=== PATIENT | female | born 1985 | race Two or more races ===

== ENCOUNTER 2020-10-08 11:42 | Inpatient (IN) | payer OTHER ==
[2020-10-08] MEDS ORDERED: DEXTROSE 5%-LACTATED RINGERS 1,000 ML IV SCH (23:45)
[2020-10-09] MEDS ORDERED: AMPICILLIN - 2 GM in SODIUM CHLORIDE 100 ML IVPB ONE (01:00)
[2020-10-09] MEDS ORDERED: AMPICILLIN SODIUM 2 GM VIAL ONE (01:09)
[2020-10-09 01:19] VITALS: BMI 26.0
[2020-10-09 01:37] LABS: BASO % 0.5 % (0-2.0); EOS % 2.8 % (0-4.5); HEMATOCRIT 33.7 % (32.4-45.2); HEMOGLOBIN 11.2 GM/dL (10.7-15.3); LYMPH % 32.6 % (8-40); MCH 26.7 pg (25.7-33.7); MCHC 33.3 g/dl (32.0-36.0); MEAN CELL VOLUME 80.2 fl (80-96); MEAN PLT VOLUME 9.3 fl (7.5-11.1); MONO % 11.1 % (3.8-10.2); PLATELET COUNT 176 10^3/uL (134-434); RBC 4.21 M/mm3 (3.60-5.2); RDW 14.4 % (11.6-15.6)
[2020-10-09 01:45] LABS: INR 0.93 (0.83-1.09); PROTHROMBIN TIME (PATIENT) 11.5 SEC (9.7-13.0)
[2020-10-09 01:47] LABS: ACTIVATED PTT 26.2 SECONDS (25.2-36.5)
[2020-10-09 02:01] LABS: CALCIUM 8.4 mg/dL (8.5-10.1)
[2020-10-09 02:02] LABS: ALBUMIN 2.6 g/dl (3.4-5.0); BLOOD UREA NITROGEN 11.9 mg/dL (7-18)
[2020-10-09 02:05] LABS: CREATININE 0.6 mg/dL (0.55-1.3)
[2020-10-09 02:06] LABS: BILIRUBIN,TOTAL 0.2 mg/dL (0.2-1); TOT PROT 6.1 g/dl (6.4-8.2)
[2020-10-09 04:04] LABS: HIV INTERPRETATION NEGATIVE (NEGATIVE); SYPHILIS W/ RPR CONF NON-REACTIVE (NONREACTIVE)
[2020-10-09] MEDS ORDERED: AMPICILLIN SODIUM 1 GM VIAL ONE ×2 (04:40→08:56)
[2020-10-09] MEDS ORDERED: PROMETHAZINE HCL 25 MG/1 ML VIAL IVPUSH ONE (04:57)
[2020-10-09] MEDS: AMPICILLIN - 1 GM in SODIUM CHLORIDE 100 ML IVPB SCH ×2 (05:00→09:00)
[2020-10-09] MEDS ORDERED: ELECTROLYTE-148 SOLN 1,000 ML IV SCH (05:00)
[2020-10-09] MEDS ORDERED: BUTORPHANOL TARTRATE 2 MG/ML VIAL ONE (05:05)
[2020-10-09] MEDS: BUTORPHANOL TARTRATE 1 MG/ML VIAL IVPB SCH ×2 (05:20→12:21)
[2020-10-09] MEDS ORDERED: PCA PUMP NR ONE (07:55)
[2020-10-09] MEDS ORDERED: FENTANYL/BUPIVACAINE/NS/PF - PCEA - 50 ML DISP.SYRIN EP ONE (07:55)
[2020-10-09] MEDS ORDERED: OXYTOCIN 30 UNITS in 0.9% NS 30 UNIT/500 ML INFUS.BAG IVPB SCH (08:15)
[2020-10-09] MEDS ORDERED: OXYTOCIN 30 UNITS in 0.9% NS 30 UNIT/500 ML INFUS.BAG IVPB ONE (08:49)
[2020-10-09] MEDS ORDERED: OXYTOCIN 20 UNITS in 0.9% NS 20 UNIT/1,000 ML INFUS.BAG IV ONE (09:15)
[2020-10-09] MEDS ORDERED: BENZOCAINE 28 GM HEMORRHOIDAL OINTMENT TP PRN (09:20)
[2020-10-09] MEDS ORDERED: BISACODYL 10 MG SUPP.RECT PR PRN (09:20)
[2020-10-09] MEDS ORDERED: BENZOCAINE 20% 57 GM BOTTLE TP PRN (09:20)
[2020-10-09] MEDS ORDERED: WITCH HAZEL 50% (TUCKS) 40 PAD/JAR PAD TP PRN (09:20)
[2020-10-09] MEDS ORDERED: METHYLERGONOVINE MALEATE 0.2 MG/1 ML AMP IM PRN (09:20)
[2020-10-09] MEDS ORDERED: OXYTOCIN 20 UNITS in 0.9% NS 20 UNIT/1,000 ML INFUS.BAG IV SCH (09:30)
[2020-10-09 10:37] LABS: CORD BASE EXCESS -3.4 mmol/L (0-2); CORD HCO3 24.4 mmHg (20-29); CORD PCO2 53.9 mmHg (30-78); CORD pH 7.273 (7.14-7.44)
[2020-10-09 10:40] LABS: CORD BASE EXCESS -4.1 mmol/L (0-2); CORD HCO3 24.9 mmHg (20-29); CORD PCO2 61.6 mmHg (30-78); CORD pH 7.224 (7.14-7.44)
[2020-10-09] MEDS: ACETAMINOPHEN 325 MG TABLET (FP) PO PRN ×3 (10:45→23:44)
[2020-10-09] MEDS: IBUPROFEN 600 MG TABLET (FP) PO PRN ×3 (10:45→23:43)
[2020-10-09 10:54] LABS: POC NITRAZINE POS
[2020-10-09] MEDS ORDERED: IBUPROFEN 600 MG TABLET (FP) PO ONE (10:59)
[2020-10-09] MEDS ORDERED: ACETAMINOPHEN 325 MG TABLET (FP) ONE (10:59)
[2020-10-10 08:59] LABS: EOS % 1.8 % (0-4.5); HEMATOCRIT 34.5 % (32.4-45.2); HEMOGLOBIN 11.1 GM/dL (10.7-15.3); LYMPH % 25.4 % (8-40); MCH 26.4 pg (25.7-33.7); MEAN CELL VOLUME 82.5 fl (80-96); MEAN PLT VOLUME 9.6 fl (7.5-11.1); MONO % 7.3 % (3.8-10.2); NEUT % 62.5 % (42.8-82.8); PLATELET COUNT 185 10^3/uL (134-434); RBC 4.18 M/mm3 (3.60-5.2); RDW 14.8 % (11.6-15.6); WHITE BLOOD COUNT 9.4 K/mm3 (4.0-10.0)
[2020-10-10] MEDS: ACETAMINOPHEN 325 MG TABLET (FP) PO PRN ×3 (09:04→21:25)
[2020-10-10] MEDS: IBUPROFEN 600 MG TABLET (FP) PO PRN ×3 (09:04→21:24)
[2020-10-10 10:50] LABS: ANISOCYTOSIS 1+; MACROCYTOSIS 0; OVALOCYTE 1+; PLATELET ESTIMATE NORMAL; TEAR DROP CELLS 1+
[2020-10-11] MEDS: IBUPROFEN 600 MG TABLET (FP) PO PRN (09:21)
[2020-10-11] MEDS: ACETAMINOPHEN 325 MG TABLET (FP) PO PRN (09:25)
[2020-10-11 10:21] VITALS: BP 119/70; PULSE 57; TEMP 97.7
== END 2020-10-11 11:40 | disposition home or self-care (01) | DRG 560 ==
LOC: UNDOADMIN 11:42 → JLDR 11:42 → J3W 10-09 12:05
PROVIDERS: ADMIT Obstetrics & Gynecology; ATTEND Obstetrics & Gynecology
PROC: 10E0XZZ Delivery of Products of Conception, External Approach (ICD-10-PCS; principal; 2020-10-08)
DX: O42.02 Full-term premature rupture of membranes, onset of labor within 24 hours of rupture (principal); Z3A.37 37 weeks gestation of pregnancy; Z37.0 Single live birth
CPT/HCPCS: 36415; 36600; 59409; 80053; 82803; 83986-QW; 85025; 85610; 85730; 86762; 86780; 86850; 86900; 86901; 87340; 87389; C9803; U0003; U0005

== ENCOUNTER 2021-01-13 16:01 | Emergency (ER) | payer OTHER ==
[2021-01-13 16:16] VITALS: BP 109/68; PULSE 81; TEMP 98; BMI 23.4
== END 2021-01-13 17:13 | disposition home or self-care (01) ==
LOC: JERFT 16:01
DX: R20.8 Other disturbances of skin sensation (principal); L63.9 Alopecia areata, unspecified
CPT/HCPCS: 99281-25